=== PATIENT | female | born 1995 | race Caucasian/White ===

== ENCOUNTER 2019-05-19 01:23 | Emergency (ER) | payer OTHER ==
--- NOTE | 2019-05-19 01:24 | ED ---
General Adult HPI - General Stated complaint: Lab Draw Time Seen by Provider: 05/19/19 01:24 Review of Systems ROS Statement: Those systems with pertinent positive or pertinent negative responses have been documented in the HPI. ROS Other: All systems not noted in ROS Statement are negative. Disposition Referrals: None,Stated [Primary Care Provider] - 1-2 days
[2019-05-19 01:45] VITALS: BP 133/73; PULSE 79; RESP 18; TEMP 97
== END 2019-05-19 01:45 | disposition home or self-care (01) ==
LOC: EC 01:23
DX: Z02.89 Encounter for other administrative examinations (principal)
CPT/HCPCS: 99499